=== PATIENT | male | born 1950 | race Caucasian/White ===

== ENCOUNTER → 2023-02-09 | Outpatient (CLI) | payer MEDICARE, OTHER, SELFPAY ==
--- NOTE | 2023-02-09 12:27 | CT_ITS ---
STUDY: CT CHEST WITH CONTRAST REASON FOR EXAM: Male, 72 years old. RBBB/OTHER CHEST PAIN/ECG ABNORMAL. Cardiac over read examination. RADIATION DOSAGE (If Supplied By Facility): CTDIvol = ( 34.99 ) mGy, DLP = ( 1205.31 ) mGycm TECHNIQUE: Transaxial imaging was performed following intravenous administration of IV 100mL Isovue-[id number]. Individualized dose optimization techniques were used for this CT. COMPARISON: No relevant priors. FINDINGS: CHEST Small intraluminal filling defects are seen in branches of the right lower lobe pulmonary artery. Tiny intraluminal filling defects are also seen in the left lower lobe pulmonary arterial branches. Calcified granuloma in the right lower lobe. There is no demonstrated pleural abnormality. There are calcifications of the coronary arteries. Normal mediastinum. Normal hilar regions. Normal aorta arch and descending thoracic aorta. Normal osseous structures. There is no demonstrated abnormality of the visualized upper abdomen. CT/Limited Chest CT Cardiac Only IMPRESSION: Multiple small intraluminal filling defects in branches of the lower lobe pulmonary arteries suggestive of pulmonary embolism. Coronary artery calcification. Electronically Signed: Mandeep Aguilera MD at 14:04 EDT ,
[2023-02-09 12:54] VITALS: BP 163/87; PULSE 64; RESP 16; O2SAT 98; BMI 28.0
[2023-02-09 13:16] VITALS: BP 163/87; PULSE 60
[2023-02-09] MEDS: Nitroglycerin SL (ED/IMG/CATH) 0.4 MG TABLET SL (13:16)
[2023-02-09 13:19] LABS: CREATININE FINGERSTICK 1.2 mg/dL (0.70-1.30); EGFR FINGERSTICK > 60.0000 mL/min (>60)
[2023-02-09 13:21] VITALS: BP 157/84; PULSE 62; RESP 18; O2SAT 99
--- NOTE | 2023-02-13 08:17 | CCTA.WCONT ---
CCTA w/Cont Coronary Arteries Date of Study:: 02/09/23 Chest pain Coronary Calcium Scoring: High-resolution Computed Tomographic imaging of the chest was performed on [02/09/2023], with particular attention paid to the coronary arteries. Intravenous contrast agent was administered per protocol and images reconstructed and displayed. LEFT MAIN CORONARY ARTERY: This arose from the left coronary cusp and bifurcating to left anterior descending artery and the left circumflex artery. No significant atherosclerotic plaquing was noted [] LEFT ANTERIOR DESCENDING CORONARY ARTERY: This was a medium size vessel with a long eccentric proximal LAD calcification area with at least moderate stenosis present. The rest of the vessel had no calcification and minimal atherosclerotic plaquing. [] LEFT CIRCUMFLEX CORONARY ARTERY: Nondominant vessel with a mid moderate area of plaquing. [] RIGHT CORONARY ARTERY: Proximal calcification noted likely nonobstructive in the proximal right coronary artery with moderate stenosis in the rest of the vessel in the midsegment. Conclusion: Moderate atherosclerotic plaquing noted in the proximal left anterior descending artery with long eccentric calcification and focal calcification noted in the proximal right and mid circumflex artery.
== END | disposition home or self-care (01) ==
LOC: CT 12:25
PROVIDERS: PCP Family Medicine; Referring Provider Physician Assistant; Visit Provider Physician Assistant
DX: R07.9 Chest pain, unspecified (principal)
CPT/HCPCS: 75574; 76380; Q9967